=== PATIENT | male | born 1980 | race Caucasian/White ===

== ENCOUNTER 2016-12-03 11:47 | Emergency (ER) | payer OTHER ==
[2016-12-03 11:58] VITALS: BMI 31.6
[2016-12-03 12:00] VITALS: RESP 18; TEMP 97.9; O2SAT 97
--- NOTE | 2016-12-03 12:12 | ED PDOC ---
Arrival/HPI - General Historian: Patient - History of Present Illness Time/Duration: > month Symptom Onset: Gradual Symptom Course: Worsening Quality: Aching Context: Home - General Chief Complaint: Upper Extremity Problem/Injury Time Seen by Provider: 12/03/16 12:08 - History of Present Illness Narrative History of Present Illness (Text): 12/03/16 12:09 This 35 yo male presents to this ED c/o right medial elbow pain x 4 weeks. Patient stated pain worsen x 3 days ago. Pain is intermittent, achy. Denies similar symptoms in the past. Denies trauma, skin rash, skin redness, weakness , paresthesias, or abnormal gait. Patient is right handed, and he works in [employer]. Patient refused pain medication (Tash Ventura) Past Medical History - Provider Review Nursing Documentation Reviewed: Yes - Infectious Disease Hx of Infectious Diseases: None - Gastrointestinal Hx Gastroesophageal Reflux: Yes - Psychiatric Hx Substance Use: No - Surgical History Hx Cholecystectomy: Yes - Anesthesia Hx Anesthesia: Yes Hx Anesthesia Reactions: No Hx Malignant Hyperthermia: No - Suicidal Assessment Feels Threatened In Home Enviroment: No Family/Social History - Physician Review Nursing Documentation Reviewed: Yes Family/Social History: Other (non-contributory) Smoking Status: Never Smoked Hx Alcohol Use: No Hx Substance Use: No Allergies/Home Meds Allergies/Adverse Reactions: Allergies No Known Allergies Allergy (Verified 11/08/13 02:10) Review of Systems - Review of Systems Constitutional: Normal. absent: Fatigue, Weight Change, Fevers, Night Sweats Eyes: Normal ENT: Normal Respiratory: Normal Cardiovascular: Normal Gastrointestinal: Normal Genitourinary Male: Normal Musculoskeletal: Other (see hpi) Skin: Normal Neurological: Normal Endocrine: Normal Hemo/Lymphatic: Normal Psychiatric: Normal Physical Exam Temperature: Afebrile Blood Pressure: Normal Pulse: Regular Respiratory Rate: Normal Appearance: Positive for: Well-Appearing, Non-Toxic, Comfortable Pain Distress: None Mental Status: Positive for: Alert and Oriented X 3 - Systems Exam Head: Present: Atraumatic, Normocephalic Pupils: Present: PERRL Extroacular Muscles: Present: EOMI Conjunctiva: Present: Normal Mouth: Present: Moist Mucous Membranes Upper Extremity: Present: Normal Inspection, Normal ROM, NORMAL PULSES, Tenderness (mild tenderness over medial aspect of right elbow. No erythema, ecchymosis, or swelling), Neurovascularly Intact, Capillary Refill < 2s. No: Cyanosis, Edema Lower Extremity: Present: Normal Inspection, NORMAL PULSES, Normal ROM Neurological: Present: CN II-XII Intact, Speech Normal, Motor Func Grossly Intact, Normal Sensory Function, Normal Cerebellar Funct Skin: Present: Warm, Dry, Normal Color. No: Rashes Psychiatric: Present: Alert, Oriented x 3, Normal Insight, Normal Concentration Vital Signs Temp Pulse Resp BP Pulse Ox 12/03/16 12:50 69 18 133/78 97 12/03/16 12:00 97.9 F 72 18 135/82 97 Medical Decision Making Re-evaluation Time: 12:35 Reassessment Condition: Re-examined, Improved ED Course and Treatment: 12/03/16 12:35 Re-evaluation. Patient feels better. Discussed results and plan with patient who expresses understanding. All questions answered and there is agreement with the plan to discharge home with instructions. Patient stable for discharge. Return if symptoms persist or worsen. (Tash Ventura) I was available for consultation during PA evaluation. The chart was reviewed by me, and I agree with disposition. The documented history was done by the physician death claim clerk. The documented physical exam was done by the physician death claim clerk. The documented procedures were done by the physician death claim clerk. (Aleksandar Rodriguez) - RAD Interpretation Radiology Orders: 12/03/16 12:09 ELBOW RIGHT 3 VIEWS ROUTINE [RAD] Stat Disposition/Present on Arrival - Present on Arrival Any Indicators Present on Arrival: No History of DVT/PE: No History of Uncontrolled Diabetes: No Urinary Catheter: No History of Decub. Ulcer: No History Surgical Site Infection Following: None - Disposition Have Diagnosis and Disposition been Completed?: Yes Disposition Time: 12:35 Patient Plan: Discharge - Disposition Diagnosis: Elbow pain Disposition: HOME/ ROUTINE Discharge Instructions (ExitCare): Elbow Sprain (ED) Additional Instructions: Call private doctor for follow up visit in 1-2 days. Take medication as instructed with food. Use arm sling for 5-7 days. Return to emergency if symptoms worsen. Prescriptions: Naproxen 500 mg PO BID PRN #10 tab PRN Reason: Pain, Severe (8-10) Referrals: PCP,NO [Primary Care Provider] - Follow up with primary [facility] [Outside] - Follow up with primary [facility] [Outside] - Follow up with primary Forms: [employer] (Turkmen)
[2016-12-03 12:51] VITALS: BP 133/78; PULSE 69
--- NOTE | 2016-12-03 13:18 | RAD ---
PROCEDURE: Radiographs of the right elbow. HISTORY: pain COMPARISON: No prior. FINDINGS: BONES: No definitive of acute displaced fracture nor dislocation JOINTS: Normal. No osteoarthritis. SOFT TISSUES: Normal. JOINT EFFUSION: None. OTHER FINDINGS: None. IMPRESSION: No definitive radiographic evidence of acute displaced fracture or dislocation. If symptoms persist or occult fracture suspected clinically recommend repeat radiographs in the as most fractures should become radiographically evident.
== END 2016-12-03 12:50 | disposition home or self-care (01) ==
LOC: ED 11:47
DX: M25.521 Pain in right elbow (principal)